=== PATIENT | male | born 1935 | race Caucasian/White ===

== ENCOUNTER 2017-12-13 09:20 | Day surgery (SDC) | payer MEDICARE, OTHER ==
[~2017-12-13 09:20] MED LIST: CHONDR SU A NA/HYALUR INTRAOC KIT (SURGICARE) ONE; EPINEPHRINE INJ/PF 1 MG/1 ML AMPULE ONE; KETOROLAC TROMETHAMINE 0.45% 4 DROP/0.4 ML DROPERETTE OS PRN; LIDOCAINE 1%/PHENYLEPHRINE 1.5% 1 ML VIAL ONE
[2017-12-13] MEDS: BESIFLOXACIN HCL 0.6% OPH SUSP 5 ML BOTTLE OS PRN ×3 (10:28→11:28)
[2017-12-13] MEDS: TROPICAMIDE 1% OPH SOLN 3 ML OS PRN ×3 (10:28→10:44)
[2017-12-13] MEDS: TETRACAINE HCL 0.5% OPH SOLN 4 ML OS PRN ×3 (10:28→10:58)
[2017-12-13] MEDS: CYCLOPENTOLATE 0.2%/PHENYLEPHRINE 1% OPH SOLN 2 ML OS PRN ×3 (10:28→10:44)
[2017-12-13] MEDS ORDERED: MIDAZOLAM 2 MG/2 ML INJ ONE (11:01)
[2017-12-13] MEDS ORDERED: FENTANYL CITRATE INJ/PF 100 MCG/2 ML AMPUL ONE (11:01)
--- NOTE | 2017-12-13 13:21 | [facility] OPERATIVE REPORT E ---
[facility] Operative Report NAME: TYSON RUTH AGE: 82Y DATE OF SURGERY: 12/13/2017 ROOM: PREOPERATIVE DIAGNOSES: 1. Cataract, left eye. 2. Pupil miosis of the left eye. POSTOPERATIVE DIAGNOSES: 1. Cataract, left eye. 2. Pupil miosis of the left eye. OPERATION: Complex cataract extraction with use of a Malyugin ring due to a very miotic pupil. SURGEON: SHERRI HENRIQUEZ M.D. ANESTHESIA: Topical. PROCEDURE: After obtaining appropriate consent, the patient's left eye was prepped and draped in sterile fashion as well as the surgeon in a sterile manner and cataract surgery was started. First a paracentesis blade was used to make a side-port incision. Viscoelastic was used to inflate the anterior chamber. Next a 2.4 mm incision was made with a 2.4 mm blade, clear corneal temporally. A continuous capsulorrhexis was made using a cystotome and Utrata forceps. Following this hydrodissection was carried out to make the lens fully loose and mobile and it was rotated 90 degrees. Following this, a ikmmyq-jee-qifrfhi technique was used to phacoemulsify the lens with a CDE of 6.59. The remaining cortex was removed with irrigation/aspiration. Provisc was instilled into the capsular bag to inflate the bag. A SN60WF, 19.0 diopter lens was placed. The remaining viscoelastic material was removed with irrigation/aspiration. Following this, the incision was found to be watertight. Besivance was instilled into the eye and a protective shield was placed over the eye. The patient returned to the postoperative recovery in stable condition. Prior to making the capsulorrhexis a Malyugin ring was inserted due to a very miotic pupil. This was removed at the end of the case. DICTATING PHYSICIAN: SHERRI HENRIQUEZ M.D. [id number] PHY#: [id number] ID: [id number] JOB#: [id number] ACCT: [id number] cc:SHERRI HENRIQUEZ M.D. >
--- NOTE | 2017-12-13 13:26 | [facility] DISCHARGE SUMMARY E ---
[facility] Discharge Summary NAME: TYSON RUTH AGE: 82Y ADMITTED: 12/13/2017 DISCHARGED: 12/13/2017 DIAGNOSES: 1. Cataract, left eye. 2. Pupil miosis of the left eye. SUMMARY: This is an 82-year-old male who underwent cataract extraction, complex, of the left eye with insertion of a Malyugin ring due to poor pupillary dilation. Patient underwent surgery because he was having difficulty seeing road signs and words on the television. DISCHARGE INSTRUCTIONS: He should be on a regular diet, no bending at his waist, and no heavy lifting. He should use Besivance, Ilevro, and Durezol at 3 p.m. and 8 p.m. and sleep with a rigid shield. I will see him for his 1-day postoperative tomorrow. DICTATING PHYSICIAN: SHERRI HENRIQUEZ M.D. [id number] PHY#: [id number] ID: [id number] JOB#: [id number] ACCT: [id number] cc:SHERRI HENRIQUEZ M.D. >
== END 2017-12-13 12:10 | disposition home or self-care (01) ==
LOC: SC 09:20
PROVIDERS: ATTEND Internal Medicine
DX: H25.12 Age-related nuclear cataract, left eye (principal); H57.03 Miosis; I10 Essential (primary) hypertension; Z79.899 Other long term (current) drug therapy; Z79.82 Long term (current) use of aspirin
CPT/HCPCS: 66982; V2632; J2250; J3490 ×2; A9270; J0171; J3010; J2370; 142